=== PATIENT | female | born 1995 | race Two or more races ===

== ENCOUNTER 2025-04-09 22:40 | Inpatient (IN) | payer MEDICAID ==
[~2025-04-09] VITALS: Ht 154.9 cm; Wt 99.8 kg
[2025-04-10] VITALS (8 sets, daily range): BP systolic 105–136; BP diastolic 67–84; PULSE 50–70; RESP 16–25; TEMP 97.5–98.4; O2SAT 95–99
[2025-04-10 00:30] LABS: Hematocrit 44.1 % (36.0-46.0); Hemoglobin 15.2 g/dL (12.2-16.2); Mean Corpuscular Hemoglobin 31.2 pg (28.0-32.0); Mean Corpuscular Hgb Conc. 34.3 g/dL (32.0-36.0); Mean Corpuscular Volume 90.7 fL (80.0-100.0); Platelet Count (auto) 245 10^3/uL (140-450); Red Blood Cells 4.86 10^6/uL (4.0-5.20); Red Cell Distribution Width 13.1 % (11.8-14.3); White Blood Cell 16.6 10^3/uL (4.4-10.8)
[2025-04-10 00:39] LABS: Chloride 103 mmol/L (98-107); Sodium 137 mmol/L (136-145)
[2025-04-10 00:40] LABS: Anion Gap 13 (5-15); Calcium 9.6 mg/dL (8.7-10.4); Carbon Dioxide 21 mmol/L (20-31)
[2025-04-10 00:41] LABS: Basophils % (manual) 0 (0.0-2.0); Blast Cells 0; Eosinophils % (manual) 0 (0-7); Metamyelocytes % 0; Myelocytes % 0; Promyelocytes % 0; Reactive Lymphocytes 0
[2025-04-10 00:42] LABS: Potassium 3.2 mmol/L (3.5-5.1)
[2025-04-10 00:45] LABS: BUN/Creatinine Ratio 8.9 (10.0-20.0); Blood Urea Nitrogen 10 mg/dL (9-23); Glucose 90 mg/dL (74-106); Lipase 31 U/L (12-53)
[2025-04-10 01:19] LABS: Band Neutrophils % (manual) 1; Lymphocytes % (manual) 24 (10.0-50.0); Monocytes % (manual) 7 (0-12); Platelet Estimate Adequate; RBC Morphology Normal
--- NOTE | 2025-04-10 01:20 | DVH ---
CT SCAN ABDOMEN AND PELVIS WITHOUT CONTRAST CLINICAL HISTORY: Diffuse right-sided abdominal pain TECHNIQUE: Helical axial images are obtained from the lung bases through the pelvis without oral cont rast. No intravenous contrast was administered. Coronal and sagittal reformatted images were generate d from thin section reconstructions. One or more of the following radiation dose reduction techniques were used for this examination: automated exposure control, adjustment of the mA and/or kV according to patient size, use of iterative reconstruction technique. COMPARISON: None FINDINGS: LOWER THORAX: Atelectasis/ scarring in the imaged medial right lung base. ABDOMEN AND PELVIS: Evaluation of visceral and vascular structures is limited due to lack of contrast administration. As visualized, the unenhanced liver, spleen, pancreas and adrenals appear grossly unremarkable. No si zable, radiopaque cholelithiasis or biliary ductal dilatation. [id number] right hydronephrosis. Approximately 7 mm x 4 mm calculus seen in the right renal pel vis at the ureteropelvic junction. No left hydroureteronephrosis. No evidence of abdominal aortic aneurysm. No evidence of bowel obstruction. No free intraperitoneal air or fluid identified. No sizable bladder calculus. No destructive osseous lesions identified. IMPRESSION: Approximately 7 mm x 4 mm calculus at the right ureteropelvic junction causing [id number] right hydronephrosis. HS:Y
[2025-04-10] MEDS: ONDANSETRON ODT 4 MG TAB PO ONE (01:38)
[2025-04-10] MEDS: DICYCLOMINE HCL (10MG/ML) 2 ML AMPULE IM ONE (01:38)
[2025-04-10 02:08] LABS: Urine Bacteria None Seen /hpf (None Seen)
--- NOTE | 2025-04-10 02:13 | ED.PDOC ---
General HPI Comments Patient is a pleasant but morbidly obese 29-year-old female who arrives to the ED today for evaluation of right-sided flank pain concerns with intermittent nausea for the past three days. Patient states the symptoms came on relatively quickly and have abdomen flowed since initial presentation. Patient has a history of kidney stones or intra-abdominal concerns. Patient denies any fever. Vital signs were stable on arrival. Chief Complaint: Abdominal Pain Time Seen by MD: 22:45 Reviewed notes: Nurses Notes Information Source: Patient, Friend Mode of Arrival: Ambulatory Severity: Mild Timing: Days Duration: Intermittent Prehospital treatment: None Onset: Spontaneous Symptoms: None History of: None Location: Abdomen, (R) Flank associated signs and symptoms: Abdominal Pain, Nausea Past Medical History PAST MEDICAL HISTORY: Denies Surgical History: Denies all surgeries OFFICE SWEEPER History: No Pertinent OFFICE SWEEPER History Family History Family History: Reviewed,noncontributory to illness, No family hx of Cancer, No family hx of DM, No family hx of Heart armond, No family hx of HTN, No family hx ofKidney armond, No family hx of Liver aromnd, No family hx of Lung armond, No family hx of Stroke Social History Smoker: Non-Smoker Alcohol: Denies ETOH Use Drugs: Denies Drug Use Lives In: Home Constitutional: denies: chills, diaphoresis, fatigue, fever, malaise, sweats, weakness, others EENTM: denies: blurred vision, double vision, ear bleeding, ear discharge, ear drainage, ear pain, ear ringing, eye pain, eye redness, hearing loss, mouth pain, mouth swelling, nasal discharge, nose bleeding, nose congestion, nose pain, photophobia, tearing, throat pain, throat swelling, voice changes, others Respiratory: denies: cough, hemoptysis, orthopnea, SOB at rest, shortness of breath, SOB with excertion, stridor, wheezing, others Cardiovascular: denies: chest pain, dizzy spells, diaphoresis, Dyspnea on exertion, edema, irregular heart beat, left arm pain, lightheadedness, palpitations, PND, syncope, others Gastrointestinal: reports: abdominal pain; denies: abdomen distended, blood streaked bowels, constipated, diarrhea, dysphagia, difficulty swallowing, hematemesis, melena, nausea, poor appetite, poor fluid intake, rectal bleeding, rectal pain, vomiting, others Genitourinary: reports: flank pain; denies: abnormal vagina bleeding, burning, dyspareunia, dysuria, frequency, hematuria, incontinence, pain, , vagina discharge, urgency, others Neurological: denies: dizziness, fainting, headache, left sided numbness, left sided weakness, numbness, paresthesia, pre-existing deficit, right sided numbness, right sided weakness, seizure, speech problems, tingling, tremors, weakness, others Musculoskeletal: denies: back pain, gout, joint pain, joint swelling, muscle pain, muscle stiffness, neck pain, others Integumetry: denies: bruises, change in color, change in hair/nails, dryness, laceration, lesions, lumps, rash, wounds, others Allergic/Immunocompromised: denies: Difficulty Healing, Frequent Infections, Hives, Itching, others Hematologic/Lymphatic: denies: anemia, blood clots, easy bleeding, easy b ruising, swollen glands, others Endocrine: denies: excessive hunger, excessive sweating, excessive thirst, excessive urination, flushing, intolerance to cold, intolerance to heat, unexplained weight gain, unexplained weight loss, others Psychiatric: denies: anxiety, bipolar disorder, depression, hopeless, panic disorder, schizophrenia, sleepless, suicidal, others Physical Exam General Appearance: Moderate Distress (Moderate distress due to right-sided abdominal and flank pain concerns.), Obese HEENT: Normal ENT Inspection, Pharynx Normal, TMs Normal Neck: Full Range of Motion, Non-Tender, Normal, Normal Inspection Respiratory: Chest Non-Tender, Lungs Clear, No Accessory Muscle Use, No Respiratory Distress, Normal Breath Sounds Cardiovascular: No Edema, No JVD, No Murmur, No Gallop, Normal Peripheral Pulses, Regular Rate/Rhythm Breast Exam: Deferred Gastrointestinal: Other (Diffuse right-sided flank pain extending towards the right lower abdomen. Diffuse CVA tenderness. Difficult to assess due to body habitus.) Genitalia: Deferred Pelvic: Deferred Rectal: Deferred Extremities: No calf tenderness, Normal capillary refill, Normal inspection, Normal range of motion, Non-tender, No pedal edema Neurologic: Alert, No Motor Deficits, Normal Affect, Normal Mood, No Sensory Deficits Cerebellar Function: Normal Reflexes: Normal Skin: Dry, Normal Color, Warm Lymphatic: No Adenopathy Was a procedure done? Was a procedure done?: No Differential Diagnosis Kidney stone (Female): Urolithiasis, Other (UTI, pyelonephritis, fatty liver, pancreatitis) X-Ray, Labs, Meds, VS Vital Signs Date Time Temp Pulse Resp B/P (MAP) Pulse Ox O2 Delivery O2 Flow Rate FiO2 04/09/25 23:42 97.6 68 18 126/86 (99) 98 97.6 Lab Test 04/10/25 02:00 04/10/25 00:18 Range/Units Urine Color Pending Urine Clarity Pending Urine pH Pending Urine Specific [place] Pending Urine Protein Pending Urine Ketones Pending Urine Blood Pending Urine Nitrite Pending Urine Bilirubin Pending Urine Urobilinogen Pending Urine Leukocyte Esterase Pending Urine RBC Pending Urine Microscopic WBC Pending Urine Squamous Epithelial Cells Pending Urine Bacteria Pending Urine Glucose Pending White Blood Count 16.6 H 4.4-10.8 10^3/uL Red Blood Count 4.86 4.0-5.20 10^6/uL Hemoglobin 15.2 12.2-16.2 g/dL Hematocrit 44.1 36.0-46.0 % Mean Corpuscular Volume 90.7 80.0-100.0 fL Mean Corpuscular Hemoglobin 31.2 28.0-32.0 pg Mean Corpuscular Hemoglobin Concent 34.3 32.0-36.0 g/dL Red Cell Distribution Width 13.1 11.8-14.3 % Platelet Count 245 140-450 10^3/uL Mean Platelet Volume 10.3 6.9-10.8 fL Neutrophils (%) (Auto) 37.0-80.0 % Lymphocytes (%) (Auto) 10.0-50.0 % Monocytes (%) (Auto) 0.0-12.0 % Eosinophils (%) (Auto) 0.0-7.0 % Basophils (%) (Auto) 0.0-2.0 % Neutrophils # (Auto) 1.6-8.6 10 ^3/uL Lymphocytes # (Auto) 0.4-5.4 10 ^3/uL Monocytes # (Auto) 0-1.3 10 ^3/uL Eosinophils # (Auto) 0-0.8 10 ^3/uL Basophils # (Auto) 0-0.2 10 ^3/uL Differential Total Cells Counted 100.0 100 Neutrophils % (Manual) 68 37.0-80.0 Band Neutrophils % (Manual) 1 Lymphocytes % (Manual) 24 10.0-50.0 Monocytes % (Manual) 7 0-12 Eosinophils % (Manual) 0 0-7 Basophils % (Manual) 0 0.0-2.0 Metamyelocytes % (manual) 0 Myelocytes % (Manual) 0 Promyelocytes % (Manual) 0 Blast Cells % (Manual) 0 Nucleated Red Blood Cells % Reactive Lymphocytes 0 Platelet Estimate Adequate Red Blood Cell Morphology Normal Sodium Level 137 136-145 mmol/L Potassium Level 3.2 L 3.5-5.1 mmol/L Chloride Level 103 98-107 mmol/L Carbon Dioxide Level 21 20-31 mmol/L Anion Gap 13 5-15 Blood Urea Nitrogen 10 9-23 mg/dL Creatinine 1.12 H 0.550-1.02 mg/dL Glomerular Filtration Rate Calc 69 >90 mL/min BUN/Creatinine Ratio 8.9 L 10.0-20.0 Serum Glucose 90 74-106 mg/dL Calcium Level 9.6 8.7-10.4 mg/dL Lipase 31 12-53 U/L Current Medications Medications (Trade) Dose Ordered Sig/[place]sea Route Start Time Stop Time Status Last Admin Dicyclomine HCl (Bentyl Injection) 20 mg ONCE ONCE IM 04/10/25 00:15 04/10/25 00:16 DC 04/10/25 01:38 Ondansetron HCl (Zofran Po) 4 mg ONCE ONCE PO 04/10/25 00:15 04/10/25 00:16 DC 04/10/25 01:38 X-Ray, Labs, Meds, VS Comment All studies performed the ED were evaluated by me personally. Urine was pending at time of this note. Serum laboratories revealed a mild leukocytosis that is on source at time of this note. CT of the abdomen revealed a 7 mm and 4 mm occlusive kidney stone causing [id number] right-sided hydronephrosis. Patient will be admitted for pain management and nephrology consultation. Once urine is returned, results will be evaluated and intervention will occur as needed. Time of 1ST Reevaluation: 02:12 Reevaluation 1ST: Improved Consultation: PCP Patient Education/Counseling: Diagnosis, Treatment Family Education/Counseling: Diagnosis, Treatment Departure 1 Departure Time of Disposition: 02:12 Impression: Primary Impression: Kidney stone Additional Impression: Hydronephrosis concurrent with and due to calculi of kidney and ureter Disposition: 09 ADMITTED INPATIENT Condition: Stable Discharged With: Self Critical Care Note Critical Care Time?: No Stability Stability form required: No Heart Score Heart Score: Heart Score Response (Comments) Value History N/A 0 EKG N/A 0 Age N/A 0 Risk Factors N/A 0 Troponin N/A 0 Total 0 RJ HU PAC Apr 10, 2025 02:13
[2025-04-10 02:16] LABS: Urine Blood Negative /uL (Negative); Urine Clarity Clear (Clear); Urine Color Light-Yellow (Yellow); Urine Mucus FEW (None Seen); Urine Protein, UAD Negative (Negative); Urine Specific Gravity 1.017 (1.001-1.035); Urine Squamous Epithelial Cell FEW /hpf (<5); Urine Urobilinogen Normal (Negative); Urine WBC 4 /HPF (0-5)
[2025-04-10] MEDS ORDERED: DOCUSATE SOD 100 MG CAP PO PRN (03:30)
[2025-04-10] MEDS ORDERED: ACETAMINOPHEN 325 MG TAB PO PRN (03:30)
[2025-04-10] MEDS ORDERED: MORPHINE SULFATE INJ 2 MG/ml SYRG IV PRN (03:30)
[2025-04-10 04:23] LABS: Basophils # (auto) 0.2 10 ^3/uL (0-0.2); Basophils % (auto) 1.1 % (0.0-2.0); Eosinophils # (auto) 0 10 ^3/uL (0-0.8); Eosinophils % (auto) 0.3 % (0.0-7.0); Hematocrit 45.2 % (36.0-46.0); Hemoglobin 15.9 g/dL (12.2-16.2); Lymphocytes # (auto) 3.3 10 ^3/uL (0.4-5.4); Lymphocytes % (auto) 23.5 % (10.0-50.0); Mean Corpuscular Hemoglobin 31.8 pg (28.0-32.0); Mean Corpuscular Hgb Conc. 35.2 g/dL (32.0-36.0); Mean Corpuscular Volume 90.4 fL (80.0-100.0); Monocytes # (auto) 1.3 10 ^3/uL (0-1.3); Monocytes % (auto) 8.8 % (0.0-12.0); Neutrophils # (auto) 9.4 10 ^3/uL (1.6-8.6); Neutrophils % (auto) 66.3 % (37.0-80.0); Platelet Count (auto) 231 10^3/uL (140-450); Red Cell Distribution Width 13.3 % (11.8-14.3); White Blood Cell 14.2 10^3/uL (4.4-10.8)
[2025-04-10 04:36] LABS: Alanine Aminotransferase 24 U/L (7-40); Anion Gap 14 (5-15); Aspartate Aminotransferase 19 U/L (13-40); BUN/Creatinine Ratio 10.6 (10.0-20.0); Blood Urea Nitrogen 12 mg/dL (9-23); Carbon Dioxide 24 mmol/L (20-31); Chloride 101 mmol/L (98-107); Glucose 80 mg/dL (74-106); Sodium 139 mmol/L (136-145)
[2025-04-10 04:37] LABS: Bilirubin, Total 0.9 mg/dL (0.2-1.0)
[2025-04-10 04:50] LABS: Alkaline Phosphatase 124 U/L (46-116); Calcium 10.4 mg/dL (8.7-10.4); Potassium 3.1 mmol/L (3.5-5.1)
[2025-04-10] MEDS: POTASSIUM CHL 20 Meq TABLET PO ONE (05:23)
[2025-04-10] MEDS: SODIUM CHLORIDE 0.9% 1,000 ML IV SCH (05:35)
--- NOTE | 2025-04-10 06:14 | DVHHP2 ---
History of Present Illness Reason for Visit: Kidney stone History of Present Illness The patient is a 29-year-old female with past medical history of kidney stone presented to [facility] ED with complaint of right-sided flank pain. Patient reports she has been experiencing intermittent nausea for the past 3 days, rating pain 7/10 numeric scale, getting worse today that prompted this visit. Patient was seen and evaluated in the ED, laboratory data shows WBC 16.6, platelets 245, sodium 137, potassium 3.2, BUN 10, creatinine 1.12, glucose 90, lipase 31, blood pressure 118/88, heart rate 58, temperature 98.7 F, O2 saturation 99% on room air. Abdomen/pelvis CT revealing a proximally 7 mm x 4 mm calculus at the right ureteropelvic junction causing mild to moderate right hydronephrosis. Please see medication orders section in the computer. On my assessment, patient denied chest pain, no headache, no dizziness, no shortness a breath, no diaphoresis, no diarrhea, no nausea, no vomiting, no fever, no chills. Patient was admitted for further evaluation and medical management. Past Medical History Kidney stones Past Surgical History Denies all surgeries Family History Reviewed, noncontributory to the management of this case. Past Social History The patient lives at home, denies smoking, alcohol or illicit drugs abuse. Review of Systems Constitutional: No: Fever, Chills, Sweats, Weakness, Malaise, Other Eyes: No: Pain, Vision change, Conjunctivae inflammation, Eyelid inflammation, Other, Redness ENT: No: Ear pain, Ear discharge, Nose pain, Nose discharge, Nose congestion, Mouth pain, Mouth swelling, Throat pain, Throat swelling, Other Respiratory: No: Cough, Dry, Shortness of breath, SOB with excertion, Wheezing, Hemoptysis, Pleuritic Pain, Sputum, Wheezing, Other Cardiovascular: No: Chest Pain, Palpitations, Orthopnea, Paroxysmal Noc. Dyspnea, Edema, Lt Headedness, Other Gastrointestinal: Nausea, Abdominal Pain; No: Vomiting, Diarrhea, Constipation, Melena, Hematochezia, Other Genitourinary: No Dysuria, No Frequency, No Incontinence, No Hematuria, No Retention; Other (Flank pain) Musculoskeletal: No: other, neck pain, shoulder pain, arm pain, back pain, hand pain, leg pain, foot pain Skin: No: Rash, Lesions, Jaundice, Bruising, Other Neurological: No: Weakness, Numbness, Incoordination, Change in speech, Confusion, Seizures, Other Allergies: Coded Allergies: Lactose Intolerance (GI) (Verified Allergy, Unknown, 04/10/25) Medications Current Medications Medications Dose Ordered Sig/[place] Route Start Time Stop Time Status Last Admin Dose Admin Sodium Chloride 1,000 ml @ 60 mls/hr [id number] IV 04/10/25 03:30 Acetaminophen/ Hydrocodone Bitart 1 tab Q4HP PRN PO 04/10/25 03:30 Ondansetron HCl 4 mg Q4HP PRN IV 04/10/25 03:30 Docusate Sodium 100 mg BIDPRN PRN PO 04/10/25 03:30 Acetaminophen 650 mg Q6HP PRN PO 04/10/25 03:30 Morphine Sulfate 2 mg Q4HPRN PRN IV 04/10/25 03:30 Exam Vital Signs Vital Signs Date Time Temp Pulse Resp B/P (MAP) Pulse Ox O2 Delivery O2 Flow Rate FiO2 04/10/25 05:10 97.6 60 16 113/78 (90) 100 97.6 General Appearance: Alert, Oriented X3, Cooperative, No acute distress HEENT: Atraumatic, PERRLA, EOMI, Mucous membr. moist/pink Respiratory: Clear to auscultation, Normal air movement Cardiovascular: Regular rate, Normal S1, Normal S2, No murmurs Abdominal: Normal bowel sounds, Soft, No hepatospenomegaly, No masses, Other (Reports tenderness) Extremities: No clubbing, No cyanosis, No edema, Normal pulses, No tenderness/swelling Skin: No rashes, No breakdown, No significant lesion Neuro: Normal gait, Normal speech, Strength at 5/5 X4 ext, Normal tone, Sensation intact, Cranial nerves 3-12 NL, Reflexes 2+ Psych/Mental Status: Mental status NL, Mood NL Labs/Xrays Labs Test 04/10/25 03:56 04/10/25 02:00 04/10/25 00:18 Range/Units White Blood Count 14.2 H 4.4-10.8 10^3/uL Red Blood Count 5.00 4.0-5.20 10^6/uL Hemoglobin 15.9 12.2-16.2 g/dL Hematocrit 45.2 36.0-46.0 % Mean Corpuscular Volume 90.4 80.0-100.0 fL Mean Corpuscular Hemoglobin 31.8 28.0-32.0 pg Mean Corpuscular Hemoglobin Concent 35.2 32.0-36.0 g/dL Red Cell Distribution Width 13.3 11.8-14.3 % Platelet Count 231 140-450 10^3/uL Mean Platelet Volume 10.5 6.9-10.8 fL Neutrophils (%) (Auto) 66.3 37.0-80.0 % Lymphocytes (%) (Auto) 23.5 10.0-50.0 % Monocytes (%) (Auto) 8.8 0.0-12.0 % Eosinophils (%) (Auto) 0.3 0.0-7.0 % Basophils (%) (Auto) 1.1 0.0-2.0 % Neutrophils # (Auto) 9.4 H 1.6-8.6 10 ^3/uL Lymphocytes # (Auto) 3.3 0.4-5.4 10 ^3/uL Monocytes # (Auto) 1.3 0-1.3 10 ^3/uL Eosinophils # (Auto) 0 0-0.8 10 ^3/uL Basophils # (Auto) 0.2 0-0.2 10 ^3/uL Nucleated Red Blood Cells 0.0 % Sodium Level 139 136-145 mmol/L Potassium Level 3.1 L 3.5-5.1 mmol/L Chloride Level 101 98-107 mmol/L Carbon Dioxide Level 24 20-31 mmol/L Anion Gap 14 5-15 Blood Urea Nitrogen 12 9-23 mg/dL Creatinine 1.13 H 0.550-1.02 mg/dL Glomerular Filtration Rate Calc 68 >90 mL/min BUN/Creatinine Ratio 10.6 10.0-20.0 Serum Glucose 80 74-106 mg/dL Calcium Level 10.4 8.7-10.4 mg/dL Total Bilirubin 0.9 0.2-1.0 mg/dL Aspartate Amino Transferase (AST) 19 13-40 U/L Alanine Aminotransferase (ALT) 24 7-40 U/L Alkaline Phosphatase 124 H 46-116 U/L Total Protein 8.0 5.7-8.2 g/dL Albumin 5.0 H 3.2-4.8 g/dL Urine Color Light-yellow Yellow Urine Clarity Clear Clear Urine pH 6.0 5.0-9.0 Urine Specific [place] 1.017 1.001-1.035 Urine Protein Negative Negative Urine Ketones 1+ H Negative Urine Blood Negative Negative /uL Urine Nitrite Negative Negative Urine Bilirubin Negative Negative Urine Urobilinogen Normal Negative mg/dL Urine Leukocyte Esterase Trace Negative /uL Urine RBC 4 0 - 4 /hpf Urine Microscopic WBC 4 0-5 /HPF Urine Squamous Epithelial Cells Few <5 /hpf Urine Bacteria None seen None Seen /hpf Urine Mucus Few None Seen Urine Glucose Normal Normal mg/dL Differential Total Cells Counted 100.0 100 Neutrophils % (Manual) 68 37.0-80.0 Band Neutrophils % (Manual) 1 Lymphocytes % (Manual) 24 10.0-50.0 Monocytes % (Manual) 7 0-12 Eosinophils % (Manual) 0 0-7 Basophils % (Manual) 0 0.0-2.0 Metamyelocytes % (manual) 0 Myelocytes % (Manual) 0 Promyelocytes % (Manual) 0 Blast Cells % (Manual) 0 Reactive Lymphocytes 0 Platelet Estimate Adequate Red Blood Cell Morphology Normal Lipase 31 12-53 U/L PATIENT: ROLO WELLINGTONNACCT: [id number] UNIT: [id number] : 1995 LOC: ER ROOM / BED: / AGE / SEX: 29 / F ADM STATUS: REG ER SERVICE 0004 ORDERING PHYSICIAN: RJ HU PAC PROCEDURE(s): ABPL - CT AB PEL WO CON-NO ORAL OR IV REASON: Diffuse right-sided abdominal pain ORDER NUMBER(s): [id number], ACCESSION NUMBER(s): [id number] CT SCAN ABDOMEN AND PELVIS WITHOUT CONTRAST CLINICAL HISTORY: Diffuse right-sided abdominal pain TECHNIQUE: Helical axial images are obtained from the lung bases through the pelvis without oral contrast. No intravenous contrast was administered. Coronal and sagittal reformatted images were generated from thin section reconstructions. One or more of the following radiation dose reduction techniques were used for this examination: automated exposure control, adjustment of the mA and/or kV according to patient size, use of iterative reconstruction technique. COMPARISON: None FINDINGS: LOWER THORAX: Atelectasis/ scarring in the imaged medial right lung base. ABDOMEN AND PELVIS: Evaluation of visceral and vascular structures is limited due to lack of contrast administration. As visualized, the unenhanced liver, spleen, pancreas and adrenals appear grossly unremarkable. No sizable, radiopaque cholelithiasis or biliary ductal dilatation. Amra-vy-hirdzkzf right hydronephrosis. Approximately 7 mm x 4 mm calculus seen in the right renal pelvis at the ureteropelvic junction. No left hydroureteronephrosis. No evidence of abdominal aortic aneurysm. No evidence of bowel obstruction. No free intraperitoneal air or fluid identified. No sizable bladder calculus. No destructive osseous lesions identified. IMPRESSION: Approximately 7 mm x 4 mm calculus at the right ureteropelvic junction causing grzd-er-xdxzewio right hydronephrosis. Assessment/Plan Assessment/Plan Kidney stone Hypokalemia Hydronephrosis concurrent with and due to calculi of kidney and ureter Leukocytosis, unspecified Plan 1. Admit to med surge unit 2. Breathing treatment 3. Pain control management 4. IV antibiotic management 5. Management of fluids and electrolytes 6. Consultation for urology/hospitalist 7. Diagnostic test abdomen/pelvis CT 8. DVT prophylaxis-on SCDs 9. Repeat labs CBC, CMP in a.m. 10. Home medication reviewed and reconciled 11. Continue with current medical management 12. Treatment plan discussed with patient and RN. Patient verbalized understanding. Plan discussed with: Patient, Other (RN) My Orders Orders - RODRIGO SAWYER DNP Procedure Category Date Status Time * Urology Consult CONS 04/10/25 Transmitted 03:30 Allergies POLO 04/10/25 In Process 03:30 Code Status CODE 04/10/25 Transmitted 03:30 2 Gm Sodium Diet DIET 04/10/25 Transmitted Breakfast Sodium Chloride 0.9% PHA 04/10/25 In Process 03:30 Oxygen Per Hour RT 04/10/25 Transmitted 03:30 Hydrocodone-Acet PHA 04/10/25 In Process 5/325mg Tab ([place] 03:30 Ondansetron Hcl PHA 04/10/25 In Process (Zofran) 03:30 Docusate Sodium PHA 04/10/25 In Process Capsule (Colace 03:30 Complete Blood Count LAB 04/11/25 Verified 04:00 Comprehensive LAB 04/11/25 Verified Metabolic Panel 04:00 Condition: Serious POLO 04/10/25 In Process 03:30 Acetaminophen Tablet PHA 04/10/25 In Process (Tylenol Tablet) 03:30 Bedrest With Bathroom POLO 6/8/25 In Process Privileg 03:30 Morphine Sulfate PHA 04/10/25 In Process Injection 03:30 Sequential POLO 04/10/25 In Process Compression Device Problem List: (1) Kidney stone (2) Hypokalemia (3) Hydronephrosis concurrent with and due to calculi of kidney and ureter (4) Leukocytosis, unspecified Date of Service: Apr 10, 2025 Billing Provider: RODRIGO SAWYER DNP Common Visit Codes: 40935-BEIFNRL INP/OBS CARE (HIGH) RODRIGO SAWYER DNP Apr 10, 2025 06:14
[2025-04-10] MEDS ORDERED: NITROGLYCERIN 0.4 MG SL TAB SL PRN (06:15)
[2025-04-10] MEDS: cefTRIAXone 1GM/50ML D5W 50 ML IV ONE (08:22)
[2025-04-10] MEDS ORDERED: SERT150C PO (08:44)
[2025-04-10] MEDS: MORPHINE SULFATE 4 MG/ML SYR/VIAL IV PRN (09:12)
[2025-04-10] MEDS: ONDANSETRON HCL 4 MG/2 ML VIAL IV PRN (10:36)
[2025-04-10] MEDS: HYDROcodone-ACET 5/325MG TAB PO PRN (17:13)
--- NOTE | 2025-04-10 19:35 | DVHINCON2 ---
Date of service: Apr 10, 2025 Referring Physician Roderick Reason for Consultation right renal [UPJ] stone History of Present Illness 29 yo female with 7mm obstructing stone right kidney;pain,nausea for several days; no prior stones Past Medical History reviewed Past Surgical History reviewed Family History: Cardiovascular disease G8 MOTHER Diabetes mellitus G8 FATHER, , Cause: Heart attack FH: heart attack G8 FATHER, , Cause: Heart attack Allergies: Coded Allergies: Lactose Intolerance (GI) (Verified Allergy, Unknown, 04/10/25) Home Meds Reported Medications Sertraline HCl (Sertraline Hydrochloride) 150 Mg Cap, 150 MG PO DAILY for Depression, CAP 04/10/25 Current Medications Current Medications Medications (Trade) Dose Ordered Sig/[place] Route PRN Reason Start Time Stop Time Status Last Admin Sodium Chloride 1,000 ml @ 60 mls/hr [id number] IV 04/10/25 03:30 04/10/25 18:14 Acetaminophen/ Hydrocodone Bitart ([place] 5/325MG Tab) 1 tab Q4HP PRN PO MODERATE PAIN (4-6 PAIN SCALE) 04/10/25 03:30 04/10/25 17:13 Ondansetron HCl (Zofran) 4 mg Q4HP PRN IV NAUSEA / VOMITING 04/10/25 03:30 04/10/25 16:40 Docusate Sodium (Colace Capsule) 100 mg BIDPRN PRN PO FOR CONSTIPATION 04/10/25 03:30 Acetaminophen (Tylenol Tablet) 650 mg Q6HP PRN PO PAIN SCALE 1-3 OR TEMP>100.4 04/10/25 03:30 Morphine Sulfate 2 mg Q4HPRN PRN IV SEVERE PAIN (7-10 PAIN SCALE) 04/10/25 03:30 Cancel Nitroglycerin (Ntrostat Sublingual) 0.4 mg Q5MINP PRN SL FOR CHEST PAIN 04/10/25 06:15 Morphine Sulfate 2 mg Q30M PRN IV FOR CHEST PAIN 04/10/25 06:30 Ceftriaxone Sodium 50 ml @ 100 mls/hr DAILY@09 IV 04/11/25 09:00 Morphine Sulfate 2 mg Q4HPRN PRN IV SEVERE PAIN (7-10 PAIN SCALE) 04/10/25 08:45 04/10/25 16:04 Review of Systems reviewed Vital Signs Vital Signs Date Time Temp Pulse Resp B/P (MAP) Pulse Ox O2 Delivery O2 Flow Rate FiO2 04/10/25 17:00 97.5 68 20 112/76 (88) 99 97.5 04/10/25 16:20 Room Air* 0 21 Labs/Diagnostic Data Labs Test 04/10/25 03:56 04/10/25 02:00 04/10/25 00:18 Range/Units White Blood Count 14.2 H 4.4-10.8 10^3/uL Red Blood Count 5.00 4.0-5.20 10^6/uL Hemoglobin 15.9 12.2-16.2 g/dL Hematocrit 45.2 36.0-46.0 % Mean Corpuscular Volume 90.4 80.0-100.0 fL Mean Corpuscular Hemoglobin 31.8 28.0-32.0 pg Mean Corpuscular Hemoglobin Concent 35.2 32.0-36.0 g/dL Red Cell Distribution Width 13.3 11.8-14.3 % Platelet Count 231 140-450 10^3/uL Mean Platelet Volume 10.5 6.9-10.8 fL Neutrophils (%) (Auto) 66.3 37.0-80.0 % Lymphocytes (%) (Auto) 23.5 10.0-50.0 % Monocytes (%) (Auto) 8.8 0.0-12.0 % Eosinophils (%) (Auto) 0.3 0.0-7.0 % Basophils (%) (Auto) 1.1 0.0-2.0 % Neutrophils # (Auto) 9.4 H 1.6-8.6 10 ^3/uL Lymphocytes # (Auto) 3.3 0.4-5.4 10 ^3/uL Monocytes # (Auto) 1.3 0-1.3 10 ^3/uL Eosinophils # (Auto) 0 0-0.8 10 ^3/uL Basophils # (Auto) 0.2 0-0.2 10 ^3/uL Nucleated Red Blood Cells 0.0 % Sodium Level 139 136-145 mmol/L Potassium Level 3.1 L 3.5-5.1 mmol/L Chloride Level 101 98-107 mmol/L Carbon Dioxide Level 24 20-31 mmol/L Anion Gap 14 5-15 Blood Urea Nitrogen 12 9-23 mg/dL Creatinine 1.13 H 0.550-1.02 mg/dL Glomerular Filtration Rate Calc 68 >90 mL/min BUN/Creatinine Ratio 10.6 10.0-20.0 Serum Glucose 80 74-106 mg/dL Calcium Level 10.4 8.7-10.4 mg/dL Total Bilirubin 0.9 0.2-1.0 mg/dL Aspartate Amino Transferase (AST) 19 13-40 U/L Alanine Aminotransferase (ALT) 24 7-40 U/L Alkaline Phosphatase 124 H 46-116 U/L Total Protein 8.0 5.7-8.2 g/dL Albumin 5.0 H 3.2-4.8 g/dL Urine Color Light-yellow Yellow Urine Clarity Clear Clear Urine pH 6.0 5.0-9.0 Urine Specific [place] 1.017 1.001-1.035 Urine Protein Negative Negative Urine Ketones 1+ H Negative Urine Blood Negative Negative /uL Urine Nitrite Negative Negative Urine Bilirubin Negative Negative Urine Urobilinogen Normal Negative mg/dL Urine Leukocyte Esterase Trace Negative /uL Urine RBC 4 0 - 4 /hpf Urine Microscopic WBC 4 0-5 /HPF Urine Squamous Epithelial Cells Few <5 /hpf Urine Bacteria None seen None Seen /hpf Urine Mucus Few None Seen Urine Glucose Normal Normal mg/dL Differential Total Cells Counted 100.0 100 Neutrophils % (Manual) 68 37.0-80.0 Band Neutrophils % (Manual) 1 Lymphocytes % (Manual) 24 10.0-50.0 Monocytes % (Manual) 7 0-12 Eosinophils % (Manual) 0 0-7 Basophils % (Manual) 0 0.0-2.0 Metamyelocytes % (manual) 0 Myelocytes % (Manual) 0 Promyelocytes % (Manual) 0 Blast Cells % (Manual) 0 Reactive Lymphocytes 0 Platelet Estimate Adequate Red Blood Cell Morphology Normal Lipase 31 12-53 U/L Assessment as above Plan/Recommendation refer to [facility] in am for continued care possible eswl Plan discussed with: Patient TINA RESENDIZ MD Apr 10, 2025 19:35
[2025-04-11] VITALS (9 sets, daily range): BP systolic 112–136; BP diastolic 66–83; PULSE 63–92; RESP 16–22; TEMP 97.1–98.2; O2SAT 94–100
[2025-04-11 06:15] LABS: Basophils # (auto) 0 10 ^3/uL (0-0.2); Basophils % (auto) 0.3 % (0.0-2.0); Eosinophils # (auto) 0.1 10 ^3/uL (0-0.8); Eosinophils % (auto) 0.6 % (0.0-7.0); Hemoglobin 14.8 g/dL (12.2-16.2); Lymphocytes # (auto) 2.4 10 ^3/uL (0.4-5.4); Lymphocytes % (auto) 19.7 % (10.0-50.0); Mean Corpuscular Hemoglobin 31.5 pg (28.0-32.0); Mean Corpuscular Hgb Conc. 34.3 g/dL (32.0-36.0); Monocytes # (auto) 1.2 10 ^3/uL (0-1.3); Monocytes % (auto) 9.9 % (0.0-12.0); Neutrophils # (auto) 8.3 10 ^3/uL (1.6-8.6); Neutrophils % (auto) 69.5 % (37.0-80.0); Platelet Count (auto) 207 10^3/uL (140-450); Red Blood Cells 4.68 10^6/uL (4.0-5.20)
[2025-04-11 06:37] LABS: Alanine Aminotransferase 20 U/L (7-40); Albumin 4.5 g/dL (3.2-4.8); Alkaline Phosphatase 115 U/L (46-116); Anion Gap 14 (5-15); Aspartate Aminotransferase 19 U/L (13-40); BUN/Creatinine Ratio 11.7 (10.0-20.0); Bilirubin, Total 0.5 mg/dL (0.2-1.0); Blood Urea Nitrogen 12 mg/dL (9-23); Calcium 9.7 mg/dL (8.7-10.4); Carbon Dioxide 22 mmol/L (20-31); Chloride 104 mmol/L (98-107); Glucose 80 mg/dL (74-106); Potassium 4.1 mmol/L (3.5-5.1); Sodium 140 mmol/L (136-145)
[2025-04-11] MEDS: cefTRIAXone 1GM/50ML D5W 50 ML IV SCH (09:33)
[2025-04-11] MEDS: MORPHINE SULFATE 4 MG/ML SYR/VIAL IV PRN (09:38)
--- NOTE | 2025-04-11 11:43 | DVHPN2 ---
Progress Note Date Seen: Apr 11, 2025 Medical Necessity Reason Pt with a Central, PICC or Fol: No Subjective Patient reports: No new complaints Review of Systems: HEENT:Normal, CVS:Normal, RESPIRATORY:Normal, GI:Normal, :Normal, MSK:Normal, NEURO:Normal Objective vital signs Vital Sign Date Time Temp Pulse Resp B/P (MAP) Pulse Ox O2 Delivery O2 Flow Rate FiO2 04/11/25 09:38 68 18 112/66 04/11/25 09:00 97.8 96 97.8 04/11/25 08:00 Room Air* 0 21 Total Intake and Output 04/10/25 04/10/25 04/11/25 15:00 23:00 07:00 Intake Total 800 ml 480 ml Output Total 900 ml Balance 800 ml -420 ml medications Current Medications Medications Dose Ordered Sig/[place] Route Start Time Stop Time Status Last Admin Dose Admin Sodium Chloride 1,000 ml @ 60 mls/hr [id number] IV 04/10/25 03:30 04/10/25 18:14 60 MLS/HR Acetaminophen/ Hydrocodone Bitart 1 tab Q4HP PRN PO 04/10/25 03:30 04/11/25 06:21 1 TAB Ondansetron HCl 4 mg Q4HP PRN IV 04/10/25 03:30 04/10/25 16:40 4 MG Docusate Sodium 100 mg BIDPRN PRN PO 04/10/25 03:30 Acetaminophen 650 mg Q6HP PRN PO 04/10/25 03:30 Morphine Sulfate 2 mg Q4HPRN PRN IV 04/10/25 03:30 Cancel Nitroglycerin 0.4 mg Q5MINP PRN SL 04/10/25 06:15 Morphine Sulfate 2 mg Q30M PRN IV 04/10/25 06:30 04/11/25 09:38 2 MG Ceftriaxone Sodium 50 ml @ 100 mls/hr DAILY@09 IV 04/11/25 09:00 04/11/25 09:33 100 MLS/HR Morphine Sulfate 2 mg Q4HPRN PRN IV 04/10/25 08:45 04/10/25 20:50 2 MG Examination: GENERAL:Normal, HEENT:Normal, NECK:Normal, LUNGS:Normal, CVS:Normal, ABDOMEN:Normal, MSK:Normal, SKIN:Normal, NEURO:Normal, :Normal laboratory and microbiology Laboratory Tests 04/11/25 05:51 Test 04/11/25 05:51 Range/Units Serum Glucose 80 74-106 mg/dL Problem List/Assessment/Plan Problem List/Assessment/Plan #1 right renal stone with hydronephrosis: ivf, eswl planned today #2 ?sirs due to stone #3 morbid obesity Plan discussed with: Patient My Orders My Orders Orders - RIO SHAH MD Procedure Category Date Status Time 0.9% Ns 1000 Ml PHA 04/11/25 Verified 11:45 Basic Metabolic Panel LAB 04/12/25 Verified 06:00 Complete Blood Count LAB 04/12/25 Verified 06:00 Date of Service: Apr 11, 2025 Billing Provider: RIO SHAH MD Common Visit Codes: [id number] INP/OBS CARE(HIGH) RIO SHAH MD Apr 11, 2025 11:43
[2025-04-11] MEDS: SODIUM CHLORIDE 0.9% 1,000 ML IV SCH (11:45)
--- NOTE | 2025-04-11 13:06 | DVH ---
INDICATION: hydronephrosis. check ureteral jets TECHNIQUE: Multiple real-time sonographic images of the kidneys and bladder were obtained. COMPARISON: None FINDINGS: The right kidney measures 12 cm in length, which is normal in size. There is normal echogen icity of the right kidney. Small right hydronephrosis. The left kidney measures 10 cm in length, which is normal in size. There is normal echogenicity of th e left kidney. No hydronephrosis. No large intraluminal masses are seen in the bladder. IMPRESSION: Small right hydronephrosis.
--- NOTE | 2025-04-11 13:23 | DVH ---
Date: 04/11/2025 12:43 PM Examination: XY KUB ABDOMEN SINGLE VIEW History: abdominal pain stone Comparison: None TECHNIQUE: Frontal views of the abdomen was obtained. FINDINGS: Bowel gas pattern is unremarkable. The lung bases are unremarkable. No acute osseous abnormality identified. IMPRESSION: Nonobstructive bowel gas pattern.
--- NOTE | 2025-04-11 18:00 | DVHNC2 ---
Procedure - OPERATIVE REPORT Pre-op. Diagnosis: UPJ stone - RIGHT Right flank pain Post-op. Diagnosis: Same as pre-op diagnosis Operation: Extracorporeal Shockwave Lithotripsy - RIGHT Cystoscopy with right ureteral stent placement Anesthesia: General Indications: Patient with symptomatic 7 mm right proximal ureteral stone Informed Consent: Options were discussed. Treatments can include conservative therapy, Extra-corporeal shockwave therapy (ESWL), Ureteroscopy with laser lithotripsy vs extraction, PCNL (percutaneous nephrolithotomy); with or without the use of Stents or retrograde pyelography. Corresponding advantages and disadvantages were also discussed. Questions were addressed. Patient wishes to proceed with right ESWL. Risks and benefits of the surgery were reviewed with patient which include but are not limited to infection, bleeding, urosepsis, renal hemorrhage/hematoma formation, need for further surgery if stone does not break, ureteral obstruction from stone fragments, cardiac arrthymia and risks of anesthesia. Despite these risks, patient wishes to proceed with the surgery. Details of Procedure: Under satisfactory anesthesia, the patient was positioned on the lithotripsy table. Using fluoroscopy the stone was localized. Patient was then positioned in lithotomy and cystoscopy was performed. The right ureteral orifice was cannulated with a guidewire. 5x [address] ureteral stent was placed. The bladder was emptied and the cystoscope was taken out. We then positioned the patient accordingly, re-identified the stone and began extra-corporeal shockwave lithotripsy. Starting at low energy levels, shockwave treatment was commenced. The energy level was gradually increased and stone was fragmented. The patient was then taken off the lithotripsy table and sent to recovery room in stable condition. Specimens: None Complications: None Findings: Stone Laterality: Right Stone Location: 7 mm proximal right ureteral stone Shocks Delivered: 2400 Max Power settin Fragmentation Quality: Well 5Fx24 cm PL ureteral stent placed. Notes: Cystoscopy with stent removal in 2-4 weeks after KUB verification of stone resolution CLARK SLOAN MD Apr 11, 2025 18:00
[2025-04-11] MEDS ORDERED: PROPOFOL 10 MG/ML 20 ML IV ONE (18:12)
[2025-04-11] MEDS ORDERED: fentaNYL CITRATE 100 MCG/2 ML VL ONE ×2 (18:12→18:41)
[2025-04-12 01:00] VITALS: BP 117/67; PULSE 89; RESP 18; TEMP 98.8; O2SAT 95
[2025-04-12 05:00] VITALS: BP 109/64; PULSE 91; RESP 18; TEMP 98.6; O2SAT 96
[2025-04-12 06:51] LABS: Anion Gap 10 (5-15); Carbon Dioxide 23 mmol/L (20-31)
[2025-04-12 06:52] LABS: Calcium 8.8 mg/dL (8.7-10.4)
[2025-04-12 06:56] LABS: BUN/Creatinine Ratio 7.8 (10.0-20.0); Glucose 80 mg/dL (74-106)
[2025-04-12 06:57] LABS: Basophils # (auto) 0 10 ^3/uL (0-0.2); Basophils % (auto) 0.3 % (0.0-2.0); Eosinophils # (auto) 0.1 10 ^3/uL (0-0.8); Eosinophils % (auto) 0.8 % (0.0-7.0); Hematocrit 41.6 % (36.0-46.0); Hemoglobin 14.4 g/dL (12.2-16.2); Lymphocytes # (auto) 1.7 10 ^3/uL (0.4-5.4); Lymphocytes % (auto) 16.5 % (10.0-50.0); Mean Corpuscular Hemoglobin 31.3 pg (28.0-32.0); Mean Corpuscular Hgb Conc. 34.8 g/dL (32.0-36.0); Mean Corpuscular Volume 90.1 fL (80.0-100.0); Monocytes # (auto) 1.1 10 ^3/uL (0-1.3); Monocytes % (auto) 10.4 % (0.0-12.0); Neutrophils # (auto) 7.5 10 ^3/uL (1.6-8.6); Platelet Count (auto) 176 10^3/uL (140-450); Red Blood Cells 4.62 10^6/uL (4.0-5.20); Red Cell Distribution Width 13.1 % (11.8-14.3); White Blood Cell 10.5 10^3/uL (4.4-10.8)
[2025-04-12 07:01] LABS: Blood Urea Nitrogen 6 mg/dL (9-23); Chloride 103 mmol/L (98-107); Potassium 3.8 mmol/L (3.5-5.1); Sodium 136 mmol/L (136-145)
[2025-04-12 09:00] VITALS: BP 116/71; PULSE 85; RESP 17; TEMP 98.3; O2SAT 97
--- NOTE | 2025-04-12 11:30 | DVHDS2 ---
Discharge Summary Date of Admission Apr 10, 2025 at 06:13 Date of Discharge: Apr 12, 2025 Labs/Diagnostic Data: Laboratory Results Test 04/12/25 05:53 04/11/25 14:27 04/11/25 05:51 04/10/25 02:00 White Blood Count 10.5 10^3/uL (4.4-10.8) Red Blood Count 4.62 10^6/uL (4.0-5.20) Hemoglobin 14.4 g/dL (12.2-16.2) Hematocrit 41.6 % (36.0-46.0) Mean Corpuscular Volume 90.1 fL (80.0-100.0) Mean Corpuscular Hemoglobin 31.3 pg (28.0-32.0) Mean Corpuscular Hemoglobin Concent 34.8 g/dL (32.0-36.0) Red Cell Distribution Width 13.1 % (11.8-14.3) Platelet Count 176 10^3/uL (140-450) Mean Platelet Volume 10.8 fL (6.9-10.8) Neutrophils (%) (Auto) 72.0 % (37.0-80.0) Lymphocytes (%) (Auto) 16.5 % (10.0-50.0) Monocytes (%) (Auto) 10.4 % (0.0-12.0) Eosinophils (%) (Auto) 0.8 % (0.0-7.0) Basophils (%) (Auto) 0.3 % (0.0-2.0) Neutrophils # (Auto) 7.5 10 ^3/uL (1.6-8.6) Lymphocytes # (Auto) 1.7 10 ^3/uL (0.4-5.4) Monocytes # (Auto) 1.1 10 ^3/uL (0-1.3) Eosinophils # (Auto) 0.1 10 ^3/uL (0-0.8) Basophils # (Auto) 0 10 ^3/uL (0-0.2) Nucleated Red Blood Cells 0.0 % Sodium Level 136 mmol/L (136-145) Potassium Level 3.8 mmol/L (3.5-5.1) Chloride Level 103 mmol/L (98-107) Carbon Dioxide Level 23 mmol/L (20-31) Anion Gap 10 (5-15) Blood Urea Nitrogen 6 mg/dL (9-23) Creatinine 0.77 mg/dL (0.550-1.02) Glomerular Filtration Rate Calc 108 mL/min (>90) BUN/Creatinine Ratio 7.8 (10.0-20.0) Serum Glucose 80 mg/dL (74-106) Calcium Level 8.8 mg/dL (8.7-10.4) Beta HCG, Quantitative 0.4 mIU/mL (1.5-4.2) Total Bilirubin 0.5 mg/dL (0.2-1.0) Aspartate Amino Transferase (AST) 19 U/L (13-40) Alanine Aminotransferase (ALT) 20 U/L (7-40) Alkaline Phosphatase 115 U/L (46-116) Total Protein 7.0 g/dL (5.7-8.2) Albumin 4.5 g/dL (3.2-4.8) Urine Color Light-yellow (Yellow) Urine Clarity Clear (Clear) Urine pH 6.0 (5.0-9.0) Urine Specific [place] 1.017 (1.001-1.035) Urine Protein Negative (Negative) Urine Ketones 1+ (Negative) Urine Blood Negative /uL (Negative) Urine Nitrite Negative (Negative) Urine Bilirubin Negative (Negative) Urine Urobilinogen Normal mg/dL (Negative) Urine Leukocyte Esterase Trace /uL (Negative) Urine RBC 4 /hpf (0 - 4) Urine Microscopic WBC 4 /HPF (0-5) Urine Squamous Epithelial Cells Few /hpf (<5) Urine Bacteria None seen /hpf (None Seen) Urine Mucus Few (None Seen) Urine Glucose Normal mg/dL (Normal) Test 04/10/25 00:18 Differential Total Cells Counted 100.0 (100) Neutrophils % (Manual) 68 (37.0-80.0) Band Neutrophils % (Manual) 1 Lymphocytes % (Manual) 24 (10.0-50.0) Monocytes % (Manual) 7 (0-12) Eosinophils % (Manual) 0 (0-7) Basophils % (Manual) 0 (0.0-2.0) Metamyelocytes % (manual) 0 Myelocytes % (Manual) 0 Promyelocytes % (Manual) 0 Blast Cells % (Manual) 0 Reactive Lymphocytes 0 Platelet Estimate Adequate Red Blood Cell Morphology Normal Lipase 31 U/L (12-53) Other Laboratory Tests 04/12/25 05:53 Brief Hx & Hospital Course: SEE DICTATED NOTE Condition at Discharge: Good Final Diagnosis/Problems List RENAL STONE Discharge Disposition: Home Discharge Instruct/Medications Diet: Regular Activity: No Restrictions, As Tolerated Follow Up/Referral: FU WITH UROLOGY IN 2 WKS FOR STENT REMOVAL Medications: RESUME HOME MEDS Discharge Statement: "Patient was advised to return to the ER or call 911 if any headaches, dizziness, shortness of breath, chest pain, abdominal pain, bleeding, fevers, or worsening of medical condition. Patient was counseled about treatment plan, medications, possible side effects, patientverbalized understanding. All questions were answered to the best of my ability. This discharge took greater then 30 minutes in planning, reviewing documentation, counseling the patient, and discussing with other team members." ASSESSMENT ASSESSMENT Assessment RENAL STONE Date of Service: Apr 12, 2025 Billing Provider: RIO SHAH MD Common Visit Codes: [id number] DISCH DAY >30min RIO SHAH MD Apr 12, 2025 11:30
--- NOTE | 2025-04-12 11:41 | DVHDS ---
DATE OF DISCHARGE: 04/12/2025 HISTORY OF PRESENT ILLNESS: The patient is a 29-year-old lady who was admitted with complaints of severe right-sided flank pain. HOSPITAL COURSE: The patient had a CT of abdomen and pelvis that showed a 7-mm calculus in the right ureteropelvic junction with mild to moderate right hydronephrosis. The patient was seen in Urology consult by Dr. Porter. The patient underwent lithotripsy and stent placement on 04/11/2025. The patient will now be discharged home to resume her home medications and follow up with Urology in the next 2-4 weeks for cystoscopy and stent removal. FINAL DIAGNOSES: * Right renal stone with hydronephrosis status post lithotripsy and stent placement. * Likely systemic inflammatory response syndrome due to renal stone. * Morbid obesity. Time spent in discharge planning and review of plan with the patient and nursing was 37 minutes. MD JUAN C Whyte/VON TID: [id number] RECEIPT: [id number]
== END 2025-04-12 17:05 | disposition home or self-care (01) | DRG 465 ==
LOC: ER 22:40 → OVERFLOW 04-10 06:13 → EAST 04-10 06:14
PROVIDERS: ADMIT Internal Medicine; ATTEND Internal Medicine
PROC: 0T768DZ Dilation of Right Ureter with Intraluminal Device, Via Natural or Artificial Opening Endoscopic (ICD-10-PCS; principal; 2025-04-11 18:08)
PROC: 0TF6XZZ Fragmentation in Right Ureter, External Approach (ICD-10-PCS; 2025-04-11 18:08)
DX: N13.2 Hydronephrosis with renal and ureteral calculous obstruction (principal); R65.10 Systemic inflammatory response syndrome (SIRS) of non-infectious origin without acute organ dysfunction; Z68.41 Body mass index [BMI] 40.0-44.9, adult; E66.01 Morbid (severe) obesity due to excess calories; E87.6 Hypokalemia; D72.829 Elevated white blood cell count, unspecified; Z87.442 Personal history of urinary calculi; Z83.3 Family history of diabetes mellitus; Z82.49 Family history of ischemic heart disease and other diseases of the circulatory system; Z91.011 Allergy to milk products
CPT/HCPCS: 36415; 74018; 74176; 76775; 80048; 80053; 81001; 83690; 84702; 85007; 85025; 85027; 96365; 96372; 96375; G0378; J2405; J2704; Q0162